=== PATIENT | male | born 1970 | race Caucasian/White ===

== ENCOUNTER 2019-09-02 09:11 | Emergency (ER) | payer MEDICAID ==
[~2019-09-02] VITALS: Ht 182.9 cm; Wt 90.0 kg
[~2019-09-02 09:11] MED LIST: BLOOD PRESSURE PO; COLC0.6T6 PO; HYDR-3980 PO; HYDR-4011 PO; IBUP800T48 PO; NALO4SPR NS; NAPR-985 PO; ONDA4TAB14 PO; PRED20TA PO
[2019-09-02 09:15] VITALS: Ht 182.9 cm; Wt 90.0 kg
[2019-09-02] MEDS ORDERED: SOD CHLORIDE 0.9% 1,000 ML IV STA (09:49)
[2019-09-02] MEDS ORDERED: KETOROLAC 30 MG INJ IV STA (10:19)
[2019-09-02] MEDS ORDERED: LIDOCAINE 1% (MPF) 5 ML VIAL INJ ONE (12:30)
[2019-09-02 14:13] VITALS: BP 133/88; PULSE 94; RESP 18
[2019-09-02] MEDS ORDERED: predniSONE 20 MG TAB PO ONE (14:30)
== END 2019-09-02 14:15 | disposition home or self-care (01) ==
LOC: FTE 09:11
DX: M10.9 Gout, unspecified (principal); I10 Essential (primary) hypertension
CPT/HCPCS: 20610; 36415; 73562; 80053; 81001; 83605; 83690; 84560; 85025; 85651; 86140; 87070; 89060; 96361; 96374; J1885; J7030; Z7502; Z7610